=== PATIENT | female | born 1990 | race Caucasian/White ===

== ENCOUNTER 2017-01-21 17:44 | Emergency (ER) | payer MEDICAID ==
[2012-10-10 15:35] VITALS: BMI 19.7
[2017-01-21 18:47] LABS: BASOPHILS 0.5 % (0.0-2.0); EOSINOPHILS 2.4 % (0-7); HEMATOCRIT 40.9 % (36.0-48.0); HEMOGLOBIN 13.7 g/dL (12-16); IMMATURE GRANULOCYTES 0.2 % (0-5); LYMPHOCYTES 19.2 % (15-50); MCH 31.9 pg (26.0-34.0); MCHC 33.5 g/dL (31.0-37.0); MCV 95.1 fL (80.0-100.0); MEAN PLATELET VOLUME 10.5 fL (7.4-10.4); MONOCYTES 10.1 % (2-11); NEUTROPHILS 67.6 % (40-80); PLATELET COUNT 217 10x3/uL (130-400); RDW 12.5 % (11.5-14.5); WBC 8.7 10x3/uL (4.8-10.8)
[2017-01-21 18:48] LABS: APPEARANCE CLEAR (CLEAR); BILIRUBIN NEGATIVE (NEGATIVE); COLOR STRAW (YELLOW); GLUCOSE NEGATIVE (NEGATIVE); KETONE SMALL mg/dL (NEGATIVE); LEUKOCYTE ESTERASE NEGATIVE (NEGATIVE); NITRITE NEGATIVE (NEGATIVE); PROTEIN NEGATIVE (NEGATIVE); UROBILINOGEN NORMAL (NORMAL)
[2017-01-21 18:50] LABS: BACTERIA FEW /hpf (NONE SEEN); EPITHELIAL CELLS 0-5 /hpf (0-5); RED CELLS - URINE 0-5 /hpf (0-5); WHITE CELLS - URINE 0-5 /hpf (0-5)
[2017-01-21 19:34] LABS: HCG SERUM POSITIVE (NEGATIVE)
== END 2017-01-21 21:25 | disposition home or self-care (01) ==
LOC: D.ER 17:44
PROVIDERS: Emergency Medicine; Physician Assistant Medical
DX: K59.00 Constipation, unspecified (principal); D25.9 Leiomyoma of uterus, unspecified; E28.2 Polycystic ovarian syndrome; N80.9 Endometriosis, unspecified

== ENCOUNTER → 2017-06-25 15:05 | Outpatient (CLI) | payer MEDICAID ==
[2012-10-10 15:35] VITALS: BMI 19.7
[~2017-06-25 15:05] MED LIST: PHENERGAN25 M1 PO; PNV; ZOFRAN4 MG PO
[2017-06-25 15:23] LABS: APPEARANCE CLOUDY (CLEAR); BILIRUBIN NEGATIVE (NEGATIVE); COLOR YELLOW (YELLOW); GLUCOSE NEGATIVE (NEGATIVE); KETONE NEGATIVE (NEGATIVE); LEUKOCYTE ESTERASE TRACE (NEGATIVE); NITRITE NEGATIVE (NEGATIVE); PH 6.5 (5.0-6.0); PROTEIN NEGATIVE (NEGATIVE); UROBILINOGEN NORMAL (NORMAL)
[2017-06-25 15:31] LABS: BACTERIA MODERATE /hpf (NONE SEEN); RED CELLS - URINE 0-5 /hpf (0-5)
[2017-06-25 15:32] LABS: AMORPHOUS SEDIMENT <1+ /lpf (NONE SEEN); GRANULAR CAST OCC /lpf (NONE SEEN); HYALINE CAST OCC /lpf (NONE SEEN); UDS - AMPHET NEGATIVE QUAL (NEGATIVE); UDS - BARB NEGATIVE QUAL (NEGATIVE); UDS - BENZO NEGATIVE QUAL (NEGATIVE); UDS - COCAINE NEGATIVE QUAL (NEGATIVE); UDS - METH NEGATIVE QUAL (NEGATIVE); UDS - OPIATE NEGATIVE QUAL (NEGATIVE); UDS - PCP NEGATIVE QUAL (NEGATIVE); UDS - THC POSITIVE QUAL (NEGATIVE)
== END | disposition home or self-care (01) ==
LOC: D.LDO 15:05
PROVIDERS: Obstetrics & Gynecology
DX: Z34.83 Encounter for supervision of other normal pregnancy, third trimester (principal); Z3A.29 29 weeks gestation of pregnancy; M54.9 Dorsalgia, unspecified; R10.9 Unspecified abdominal pain; R51 Headache

== ENCOUNTER 2017-09-15 22:45 | Emergency (ER) | payer MEDICAID ==
[2012-10-10 15:35] VITALS: BMI 19.7
[2017-09-15 23:15] LABS: BASOPHILS 0.5 % (0-2); EOSINOPHILS 4.5 % (0-7); HEMOGLOBIN 13.4 g/dL (12-16); IMMATURE GRANULOCYTES 0.2 % (0-5); LYMPHOCYTES 29.4 % (15-50); MCH 32.1 pg (26.0-34.0); MCHC 33.5 g/dL (31.0-37.0); MCV 95.7 fL (80.0-100.0); MEAN PLATELET VOLUME 10.3 fL (7.4-10.4); MONOCYTES 6.7 % (2-11); NEUTROPHILS 58.7 % (40-80); RBC 4.18 10x6/uL (4.00-5.40); RDW 12.5 % (11.5-14.5); WBC 8.7 10x3/uL (4.8-10.8)
[2017-09-15 23:16] LABS: PLATELET COUNT 300 10x3/uL (130-400)
[2017-09-15 23:27] LABS: HCG SERUM POSITIVE (NEGATIVE)
== END 2017-09-16 03:44 | disposition home or self-care (01) ==
LOC: D.ER 22:45
PROVIDERS: Emergency Medicine
DX: N93.9 Abnormal uterine and vaginal bleeding, unspecified (principal)

== ENCOUNTER 2017-09-16 13:38 | Emergency (ER) | payer MEDICAID ==
[2012-10-10 15:35] VITALS: BMI 19.7
[2017-09-16 16:26] LABS: BASOPHILS 0.7 % (0-2); EOSINOPHILS 4.9 % (0-7); HEMATOCRIT 40.9 % (36.0-48.0); HEMOGLOBIN 13.4 g/dL (12-16); IMMATURE GRANULOCYTES 0.1 % (0-5); LYMPHOCYTES 32.5 % (15-50); MCH 31.8 pg (26.0-34.0); MCHC 32.8 g/dL (31.0-37.0); MCV 96.9 fL (80.0-100.0); MEAN PLATELET VOLUME 10.5 fL (7.4-10.4); MONOCYTES 5.9 % (2-11); NEUTROPHILS 55.9 % (40-80); PLATELET COUNT 287 10x3/uL (130-400); RBC 4.22 10x6/uL (4.00-5.40); RDW 12.5 % (11.5-14.5)
== END 2017-09-16 19:02 | disposition home or self-care (01) ==
LOC: D.ER 13:38
PROVIDERS: Physician Assistant
DX: N92.0 Excessive and frequent menstruation with regular cycle (principal); Z98.890 Other specified postprocedural states

== ENCOUNTER 2017-10-31 12:51 | Emergency (ER) | payer MEDICAID ==
[2012-10-10 15:35] VITALS: BMI 19.7
== END 2017-10-31 15:41 | disposition home or self-care (01) ==
LOC: D.ER 12:51
DX: G43.909 Migraine, unspecified, not intractable, without status migrainosus (principal)

== ENCOUNTER 2017-11-01 08:49 | Emergency (ER) | payer MEDICAID ==
[2012-10-10 15:35] VITALS: BMI 19.7
== END 2017-11-01 11:07 | disposition home or self-care (01) ==
LOC: D.ER 08:49
DX: G43.909 Migraine, unspecified, not intractable, without status migrainosus (principal); E28.2 Polycystic ovarian syndrome

== ENCOUNTER 2019-05-10 02:33 | Outpatient (CLI) | payer MEDICAID ==
[2012-10-10 15:35] VITALS: BMI 19.7
[2019-05-10 03:16] LABS: APPEARANCE CLEAR (CLEAR); BILIRUBIN NEGATIVE (NEGATIVE); COLOR STRAW (YELLOW); GLUCOSE NEGATIVE (NEGATIVE); KETONE NEGATIVE (NEGATIVE); NITRITE NEGATIVE (NEGATIVE); PROTEIN NEGATIVE (NEGATIVE); UROBILINOGEN NORMAL (NORMAL)
[2019-05-10 03:27] LABS: UDS - AMPHET NEGATIVE QUAL (NEGATIVE); UDS - BARB NEGATIVE QUAL (NEGATIVE); UDS - BENZO NEGATIVE QUAL (NEGATIVE); UDS - COCAINE NEGATIVE QUAL (NEGATIVE); UDS - OPIATE NEGATIVE QUAL (NEGATIVE); UDS - PCP NEGATIVE QUAL (NEGATIVE); UDS - THC NEGATIVE QUAL (NEGATIVE)
== END 2019-05-10 04:04 | disposition home or self-care (01) ==
LOC: D.LDO 02:33
PROVIDERS: ATTEND Obstetrics & Gynecology
DX: O26.892 Other specified pregnancy related conditions, second trimester (principal); Z3A.27 27 weeks gestation of pregnancy

== ENCOUNTER 2019-12-07 21:17 | Emergency (ER) | payer MEDICAID ==
[~2019-12-07] VITALS: Ht 162.6 cm; Wt 68.2 kg
[2019-12-07 21:28] VITALS: Ht 162.6 cm; Wt 68.2 kg
[2019-12-07 22:07] LABS: APPEARANCE CLEAR (CLEAR); BILIRUBIN NEGATIVE (NEGATIVE); COLOR YELLOW (YELLOW); GLUCOSE NEGATIVE (NEGATIVE); KETONE NEGATIVE (NEGATIVE); NITRITE NEGATIVE (NEGATIVE); PROTEIN TRACE mg/dL (NEGATIVE); UROBILINOGEN NORMAL (NORMAL)
[2019-12-07 23:30] VITALS: BP 102/68
== END 2019-12-07 23:29 | disposition home or self-care (01) ==
LOC: D.ER 21:17
PROVIDERS: Emergency Medicine
DX: K59.01 Slow transit constipation (principal); J45.909 Unspecified asthma, uncomplicated